=== PATIENT | female | born 2000 | race Caucasian/White ===

== ENCOUNTER 2021-03-10 10:50 | Emergency (ER) | payer BC, SELFPAY ==
--- NOTE | ~2021-03-10 | XR_ITS ---
EXAMINATION: XR chest 2V DATE: 03/10/2021 11:44 INDICATION: Shortness of breath. Cough. TECHNIQUE: Frontal and lateral views of the chest were obtained. COMPARISON: None. FINDINGS: The chest demonstrates clear lungs without pneumonia, pleural effusion, or pneumothorax. Th e heart size is normal. IMPRESSION: 1. No acute cardiopulmonary disease. Reviewed, dictated and finalized at location A. [facility]
[2021-03-10 11:04] VITALS: BP 98/78; PULSE 124; RESP 18; TEMP 37.1; O2SAT 98
--- NOTE | 2021-03-10 11:17 | ED.URI ---
HPI - URI/Sore Throat General Chief Complaint: Upper Respiratory Infection Stated Complaint: Runny Nose,Cough,Vomiting,Headache Time Seen by Provider: 03/10/21 11:18 Source: patient, RN notes reviewed and old records reviewed Mode of arrival: ambulatory Limitations: no limitations History of Present Illness HPI Narrative: 21-year-old female presents to [facility] with complaints of nasal congestion and drainage, cough, vomiting and headache since yesterday. Patient reports that she had COVID immunizations and then Booster on February 08 and tested positive for COVID on February 14. Patient states that she had sneezing and nasal congestion and drainage when she had COVID but those symptoms had resolved. Patient reports that her symptoms started yesterday with some stated dyspnea with exertion and when climbing stairs,fever last night and also vomited this morning. Patient has not taken anything OTC for her symptoms. MD elicited complaint: cough, rhinorrhea, nasal congestion and other (Headache, vomited this morning.) Pertinent past history: seasonal allergies Onset (ago): day(s) (1) Consistency: constant Description of mucous: clear Associated symptoms: fever, chills, headache, rhinorrhea, nasal congestion, cough, shortness of breath (exertional) and other (ears feel muffled) Treatments prior to arrival: none Related Data Allergies Allergy/AdvReac Type Severity Reaction Status Date / Time No Known Allergies Allergy Verified 03/10/21 11:10 Review of Systems Review of Systems: CONSTITUTIONAL: Positive fever, chills, or sweats. EYES: Denies visual changes, redness, or discharge. ENT: Positive rhinorrhea, congestion, sore throat, or otalgia. CARDIOVASCULAR: Denies chest pain, palpitations, or edema. RESPIRATORY: Positive cough or dyspnea when climbing stairs and exertion GASTROINTESTINAL: Denies abdominal pain, positive nausea, vomiting, no diarrhea. GENITOURINARY: Denies dysuria or hematuria. SKIN: Denies rash or itching. MUSCULOSKELETAL: Denies back pain, joint pain, or myalgia. NEUROLOGIC: Positive frontal headache, no numbness, or weakness. PSYCHIATRIC: Positive history of anxiety or depression. All systems reviewed & are unremarkable except as noted in HPI and below PMFSH Past Medical History Medical History (Updated 03/10/21 @ 11:59 by Lucina Palm NP) Anxiety and depression Surgical History Surgical History (Updated 03/10/21 @ 11:43 by Lucina Palm NP) No history of previous surgery Family History Family History (Updated 03/10/21 @ 11:44 by Lucina Palm NP) Mother Heart disease Grandparent Kidney stones Social History Social History (Updated 03/10/21 @ 11:55 by Lucina Palm NP) Smoking status: Never smoker Alcohol intake: never Substance use: never Living arrangements: with roommate(s) Occupation/Education: student Gender identity (if verbalized by the patient): Female Comments At time of signature, agree with nursing past medical, surgical, social and family history. There is no relevant family history pertinent to the presenting complaint Exam Narrative: GENERAL: Well-appearing, well-nourished, and in no acute distress. HEAD: Normocephalic, atraumatic. EYES: PERRLA and EOMI. ENT: Nares clear, no rhinorrhea or epistaxis. Mucous membranes moist.TM's normal with good light reflex, throat pink with no lesions or exudates. NECK: Supple.no lymphadenopathy CHEST: Decreased breath sound on auscultation. No respiratory distress.SAO2 98% on room air HEART: Regular rate and rhythm. No murmur heard. Normal peripheral pulses. ABDOMEN: Soft, nontender, nondistended, normal active bowel sounds. EXTREMITIES: Normal range of motion. No edema. SKIN: Warm, dry, no rash. NEURO: No focal deficits. Alert and oriented x3. Course Course Level of Care: Express Care Visit Vital Signs Vital signs: Vital Signs Temperature 37.1 C 03/10/21 11:04 Pulse Rate 124 H 03/10/21 11:04 R
== END 2021-03-10 12:03 | disposition home or self-care (01) ==
PROVIDERS: Emergency Provider Registered Nurse; PCP Physician Assistant
DX: J06.9 Acute upper respiratory infection, unspecified (principal); R11.2 Nausea with vomiting, unspecified; Z86.16 Personal history of COVID-19
CPT/HCPCS: 71046; 99203; G0463

== ENCOUNTER 2022-10-22 19:46 | Emergency (ER) | payer BC, SELFPAY ==
--- NOTE | 2022-10-22 19:56 | ED.GENADULT ---
HPI - General Adult General Chief complaint: Upper Respiratory Infection Stated complaint: chest tigtness,dizziness Source: patient Mode of arrival: ambulatory Limitations: no limitations History of Present Illness HPI narrative: 22-year-old female presented for complaint of midsternal chest pain with taking deep breaths, onset 3 hours ago. She states this started after exercising; not doing anything out of the ordinary or lifting heavy weights. States she then developed dizziness about 30 minutes prior to arrival. Dizziness is described as feeling like she could pass out, denies room spinning sensation. Dizziness worse with walking. Denies chest pain at rest. Rates chest pain 5/10 with deep breath. Denies cough, palpitations, nausea, vomiting, diarrhea, fevers or chills. Endorses a history of POTS, but was then told 'it was just anxiety.' Related Data Home Medications Medication Instructions Recorded Confirmed norethindrone acetate 1 mg-ethinyl 1 tablet PO DAILY 10/22/22 10/22/22 estradiol 20 mcg tablet Allergies Allergy/AdvReac Type Severity Reaction Status Date / Time No Known Allergies Allergy Verified 10/22/22 19:51 Review of Systems Review of Systems: CONSTITUTIONAL: Denies body aches, fever, chills, or sweats. EYES: Denies visual changes, redness, or discharge. ENT: Denies rhinorrhea, congestion, sore throat, or otalgia. CARDIOVASCULAR: Reports chest pain with deep breath Denies palpitations, or edema. RESPIRATORY: Denies cough or dyspnea. GASTROINTESTINAL: Denies abdominal pain, nausea, vomiting, or diarrhea. GENITOURINARY: Denies dysuria or hematuria. SKIN: Denies rash, itching, or wounds. MUSCULOSKELETAL: Denies back pain, joint pain, or myalgia. NEUROLOGIC: Denies headache, numbness, tingling, or weakness. All systems reviewed & are unremarkable except as noted in HPI and below PMFSH Past Medical History Medical History Anxiety and depression Surgical History Surgical History No history of previous surgery Family History Family History Mother Heart disease Grandparent Kidney stones Social History Social History Smoking status: Never smoker Alcohol intake: never Substance use: never Living arrangements: with roommate(s) Occupation/Education: student Gender identity (if verbalized by the patient): Female Comments At time of signature, I have reviewed and agree with nursing past medical, surgical, social and family history unless otherwise noted. Please see nursing chart for further information. There is no relevant family history pertinent to the presenting complaint Exam Narrative: GENERAL: Well-appearing, well-nourished, and in no acute distress. HEAD: Normocephalic, atraumatic. EYES: EOMI. PERRLA No redness or drainage. Conjunctivae normal. ENT: Mucous membranes pink and moist. No rhinorrhea. TMs normal bilaterally. Throat normal. Uvula midline. NECK: Normal AROM. Supple. No lymphadenopathy. CHEST: No respiratory distress. Clear to auscultation. Mid sternal area nontender with palpation. HEART: Regular rate and rhythm. No murmur appreciated. Normal peripheral pulses. ABDOMEN: Soft, nontender, nondistended, normal active bowel sounds. MUSCULOSKELETAL: No bony tenderness. EXTREMITIES: Normal range of motion. No edema. SKIN: Warm, dry, no rash. Capillary refill normal. Normal skin turgor. NEURO: No focal deficits. Alert and oriented x3. Gait steady. PSYCH: Normal affect. Course Course Emergency Course: Patient is aware of diagnosis, understands and agrees to treatment plan. Anticipatory guidance given. Patient agrees to follow-up as directed and is aware of reasons to seek care at the emergency department. Portions of this re
[2022-10-22 19:59] VITALS: BP 127/76; PULSE 69; RESP 18; TEMP 36.7; O2SAT 100
--- NOTE | 2022-10-22 20:09 | ECG_ITS ---
Measurements Intervals [place] Rate: 77 P: 62 GA: 150 QRS: 74 QRSD: 74 T: 38 QT: 364 QTc: 412 Interpretive Statements SINUS RHYTHM NORMAL ECG NO PREVIOUS ECG AVAILABLE FOR COMPARISON Electronically Signed On 10-23-2022 6:20:28 CDT by Olivier Giles D.O.
== END 2022-10-22 20:20 | disposition home or self-care (01) ==
PROVIDERS: Emergency Provider Nurse Practitioner Family; PCP Physician Assistant
DX: R07.89 Other chest pain (principal); Z79.899 Other long term (current) drug therapy
CPT/HCPCS: 93005; 99213; G0463